=== PATIENT | male | born 1960 | race Caucasian/White ===

== ENCOUNTER 2017-08-15 23:39 | Emergency (ER) | payer OTHER ==
[~2017-08-15] VITALS: Ht 185.4 cm; Wt 89.2 kg
[2017-08-16] MEDS ORDERED: SODIUM CHLORIDE 0.9% 1,000ML IV ONE
[2017-08-16] MEDS ORDERED: KETOROLAC 30 MG/1 ML IVPush ONE
[2017-08-16] MEDS ORDERED: SODIUM CHLORIDE FLUSH 10ML SYR IVF ONE
[2017-08-16] MEDS ORDERED: KETOROLAC 30 MG/1 ML ONE (00:06)
[2017-08-16 00:24] LABS: BASOPHILS # (AUTO) 0.03 x10^3/uL (0-0.1); BASOPHILS % (AUTO) 0 % (0-1); EOSINOPHILS # (AUTO) 0.07 x10^3/uL (0-0.4); EOSINOPHILS % (AUTO) 1 % (1-7); LYMPHOCYTES # (AUTO) 1.98 x10^3/uL (1-3.4); LYMPHOCYTES % (AUTO) 22 % (22-44); MD NO; MEAN CORPUSCULAR HEMOGLOBIN 31.7 pg (27.5-34.5); MEAN CORPUSCULAR HGB CONC 33.3 g/dL (33.2-36.2); MEAN CORPUSCULAR VOLUME 95.1 fL (81-97); MEAN PLATELET VOLUME 7.5 fL (7.4-10.4); MONOCYTES % (AUTO) 10 % (2-9); NEUTROPHILS # (AUTO) 6.01 x10^3/uL (1.8-6.8); NEUTROPHILS % (AUTO) 67 % (42-75); PLATELET COUNT 254 x10^3/uL (130-400); RED BLOOD COUNT 4.62 x10^6/uL (4.38-5.82); RED CELL DISTRIBUTION WIDTH 12.7 % (9.4-14.8)
[2017-08-16 00:33] LABS: ALANINE AMINOTRANSFERASE 23 U/L (12-78); ALBUMIN 3.6 g/dL (3.4-5.0); ANION GAP 9 mmol/L (5-15); CALCIUM 8.5 mg/dL (8.5-10.1); CHLORIDE 112 mmol/L (98-107); CREATININE 1.08 mg/dL (0.7-1.3)
[2017-08-16 00:35] LABS: ALKALINE PHOSPHATASE 92 U/L (45-117); BILIRUBIN,TOTAL 0.8 mg/dL (0.2-1.0); TOTAL PROTEIN 6.9 g/dL (6.4-8.2)
[2017-08-16 01:19] LABS: MICROSCOPIC AUTO
[2017-08-16 01:24] LABS: CULTURE INDICATED? YES
[2017-08-16 02:45] VITALS: BP 124/86
== END 2017-08-16 02:50 | disposition home or self-care (01) ==
LOC: ED 08-16 01:00
DX: N13.2 Hydronephrosis with renal and ureteral calculous obstruction (principal); K21.9 Gastro-esophageal reflux disease without esophagitis; E78.5 Hyperlipidemia, unspecified; G80.9 Cerebral palsy, unspecified
CPT/HCPCS: 36415; 74176; 80053; 81001; 85025; 87086; 96361; 96374; 99285; J1885; J7030

== ENCOUNTER 2018-06-06 23:09 | Inpatient (IN) | payer OTHER ==
[~2018-06-06] VITALS: Ht 185.4 cm; Wt 85.3 kg
--- NOTE | 2018-06-06 23:30 | NUR ---
PT AMBULATED TO ROOM WITH A STEADY GAIT. PT RECENTLY DX WITH PNEUMONIA. 3 DAYS OF ANTIBIOTICS AND NOT GETTING BETTER PT O2 SAT IN OFFICE 8. AFTER BREATHING TX UP TO 91. HAS BEEN USING INHALER FOR PAST FEW NIGHTS. PLACED ON O2 AT 2 LPM, SATING 92, ABLE TO SPEAK IN FULL SENTENCES
[2018-06-07] MEDS ORDERED: ALBUTEROL/IPRATROPIUM 2.5MG/0.5MG, 3 ML NPPB ONE
[2018-06-07 00:17] LABS: ALANINE AMINOTRANSFERASE 30 U/L (12-78); ALBUMIN 2.8 g/dL (3.4-5.0); ANION GAP 9 mmol/L (5-15); CALCIUM 8.9 mg/dL (8.5-10.1); CHLORIDE 107 mmol/L (98-107); CREATININE 0.98 mg/dL (0.7-1.3)
[2018-06-07 00:18] LABS: ALKALINE PHOSPHATASE 74 U/L (45-117); BASOPHILS # (AUTO) 0.07 x10^3/uL (0-0.1); BASOPHILS % (AUTO) 1 % (0-1); BILIRUBIN,TOTAL 0.6 mg/dL (0.2-1.0); EOSINOPHILS % (AUTO) 0 % (1-7); LYMPHOCYTES # (AUTO) 1.05 x10^3/uL (1-3.4); LYMPHOCYTES % (AUTO) 9 % (22-44); MD NO; MEAN CORPUSCULAR HEMOGLOBIN 32.5 pg (27.5-34.5); MEAN CORPUSCULAR HGB CONC 34.2 g/dL (33.2-36.2); MEAN CORPUSCULAR VOLUME 94.8 fL (81-97); MEAN PLATELET VOLUME 7.8 fL (7.4-10.4); MONOCYTES # (AUTO) 1.03 x10^3/uL (0.2-0.8); MONOCYTES % (AUTO) 9 % (2-9); NEUTROPHILS # (AUTO) 9.64 x10^3/uL (1.8-6.8); NEUTROPHILS % (AUTO) 82 % (42-75); PLATELET COUNT 372 x10^3/uL (130-400); RED BLOOD COUNT 4.06 x10^6/uL (4.38-5.82); RED CELL DISTRIBUTION WIDTH 13.2 % (9.4-14.8); TOTAL PROTEIN 7.3 g/dL (6.4-8.2)
[2018-06-07] MEDS ORDERED: ALBUTEROL/IPRATROPIUM 2.5MG/0.5MG, 3 ML ONE (00:21)
--- NOTE | 2018-06-07 00:46 | NUR ---
TASK RN: PT IN CT
[2018-06-07] MEDS ORDERED: OMNIPAQUE 350 MG/ML, 100ML BOTTLE ONE (00:55)
--- NOTE | 2018-06-07 00:58 | NUR ---
TASK RN: PT RETURNED FROM CT, NAD NOTED. RESPIRATIONS EVEN/UNLABORED; SPEAKING IN FULL SENTENCES WO DIFFICULTY; SPO2 >90% ON 2L BY NC. IVF HUNG FOR TX OF LA. ERP AT BEDSIDE TO DISCUSS POC (RESULTS/RECHECK), PT DEMONSTRATES UNDERSTANDING BP/SPO2/ECG MONITORING IN PLACE. SINUS TACH ON MONITOR. SO AT BEDSIDE.
[2018-06-07] MEDS ORDERED: SODIUM CHLORIDE 0.9% 1,000ML IVBOLUS ONE (01:00)
[2018-06-07] MEDS ORDERED: LEVOFLOXACIN/PMX 750MG/150ML 150 ML ONE (01:50)
[2018-06-07] MEDS ORDERED: LEVOFLOXACIN/PMX 750MG/150ML 150 ML IV ONE (02:00)
[2018-06-07] MEDS ORDERED: VANCOMYCIN PER PHARMACY MC PRN ×2 (02:00→02:30)
--- NOTE | 2018-06-07 02:00 | NUR ---
HOSPITALIST AT BEDSIDE, PT IN NO DISTRESS
[2018-06-07] MEDS ORDERED: ONDANSETRON 2MG/ML, 2ML IVPB PRN (02:30)
[2018-06-07] MEDS ORDERED: PHARMACY MAY ADJ FOR RENAL FX MC PRN (02:30)
[2018-06-07] MEDS ORDERED: LEVOFLOXACIN/PMX 750MG/150ML 150 ML IV SCH (02:30)
[2018-06-07] MEDS ORDERED: ACETAMINOPHEN 325 MG TABLET PO PRN (02:30)
[2018-06-07] MEDS ORDERED: ALBUTEROL/IPRATROPIUM 2.5MG/0.5MG, 3 ML IPPB PRN (02:30)
[2018-06-07 02:31] LABS: RAPID INFLUENZA A Negative (Negative); RAPID INFLUENZA B Negative (Negative)
[2018-06-07] MEDS ORDERED: ENOXAPARIN 40 MG/0.4 ML ONE (02:53)
[2018-06-07] MEDS ORDERED: methylPREDNISolone SOD SUCC 40 MG/ML ONE (02:54)
--- NOTE | 2018-06-07 02:55 | NUR ---
PT RESTING QUIETLY, DENIES SOB, MEDICATED PER eMAR, LIGHTS TURNED DOWN
[2018-06-07] MEDS: methylPREDNISolone SOD SUCC 40 MG/ML IV SCH ×2 (03:11→15:06)
[2018-06-07] MEDS: ENOXAPARIN 40 MG/0.4 ML SQ SCH (03:11)
--- NOTE | 2018-06-07 03:48 | NUR ---
PT ASKED IF HE WOULD LIKE TO BE IN HOSPITAL BED. STATES "NO, I JUST WANT TO SLEEP." THIS RN SAID HOSPITAL BEDS ARE TYPICALLY MORE COMFORTABLE. PT STILL REFUSING.
--- NOTE | 2018-06-07 04:07 | NUR ---
PT RESTING QUIETLY, NO COMPLAINTS AT THIS TIME. STATES THE SERVICE HERE HAS BEEN GREAT
[2018-06-07] MEDS ORDERED: PHARMACOKINETIC MONITORING MC PRN (06:00)
[2018-06-07] MEDS: VANCOMYCIN 1,600 MG in SODIUM CHLORIDE 0.9% 250 ML IV SCH ×2 (06:49→19:19)
--- NOTE | 2018-06-07 07:27 | NUR ---
BEDSIDE REPORT FROM ADAN RN, PT RESTING IN BED, ON 4LNC, NO NEEDS AT THIS TIME, BREAKFAST TRAY ORDERED, CALL LIGHT WITH PT.
--- NOTE | 2018-06-07 08:45 | NUR ---
PT MOVED TO HOSPITAL BED AND BREAKFAST PROVIDED. PT SITTING IN CHAIR TO EAT, NO NEEDS AT THIS TIME. WCTM.
[2018-06-07] MEDS ORDERED: BENZONATATE 100 MG CAPSULE ONE (08:54)
[2018-06-07] MEDS: BENZONATATE 100 MG CAPSULE PO SCH ×3 (08:58→20:55)
[2018-06-07] MEDS ORDERED: ALBUTEROL/IPRATROPIUM 2.5MG/0.5MG, 3 ML NPPB PRN (10:30)
--- NOTE | 2018-06-07 10:51 | NUR ---
PT IN BED, NAD, NO NEEDS AT THIS TIME. WCMT.
--- NOTE | 2018-06-07 11:43 | NUR ---
REPORT GIVEN TO FATOU REEVES, PT TRANSPORTED TO ROOM WITH TECH [facility]IA [facility]. VSS. TORRE.
[2018-06-07] MEDS ORDERED: CEFTRIAXONE PMX 2GM/50ML 50 ML IV SCH (13:30)
[2018-06-07 14:00] VITALS: BP 126/86
[2018-06-07 18:35] VITALS: BP 123/80
[2018-06-07] MEDS: DOXYCYCLINE 100MG TABLET PO SCH (20:55)
[2018-06-08] MEDS ORDERED: GUAIFENESIN/DM 200-20MG, 10ML UDC PO PRN (00:30)
[2018-06-08 00:39] VITALS: BP 113/66
[2018-06-08] MEDS: GUAIFENESIN/DM 200-20MG, 10ML UDC PO PRN ×3 (00:54→21:14)
[2018-06-08] MEDS: methylPREDNISolone SOD SUCC 40 MG/ML IV SCH ×2 (02:35→18:03)
[2018-06-08] MEDS: ENOXAPARIN 40 MG/0.4 ML SQ SCH (02:35)
[2018-06-08 04:47] LABS: ANION GAP 5 mmol/L (5-15); CALCIUM 8.6 mg/dL (8.5-10.1); CHLORIDE 109 mmol/L (98-107); CREATININE 0.83 mg/dL (0.7-1.3)
[2018-06-08 04:55] LABS: BASOPHILS # (AUTO) 0.02 x10^3/uL (0-0.1); BASOPHILS % (AUTO) 0 % (0-1); EOSINOPHILS % (AUTO) 0 % (1-7); LYMPHOCYTES # (AUTO) 1.45 x10^3/uL (1-3.4); LYMPHOCYTES % (AUTO) 9 % (22-44); MD NO; MEAN CORPUSCULAR HEMOGLOBIN 32.1 pg (27.5-34.5); MEAN CORPUSCULAR HGB CONC 33.5 g/dL (33.2-36.2); MEAN PLATELET VOLUME 7.6 fL (7.4-10.4); MONOCYTES # (AUTO) 1.07 x10^3/uL (0.2-0.8); MONOCYTES % (AUTO) 7 % (2-9); NEUTROPHILS # (AUTO) 13.88 x10^3/uL (1.8-6.8); NEUTROPHILS % (AUTO) 85 % (42-75); PLATELET COUNT 349 x10^3/uL (130-400); RED BLOOD COUNT 3.95 x10^6/uL (4.38-5.82); RED CELL DISTRIBUTION WIDTH 13.4 % (9.4-14.8)
[2018-06-08 07:20] VITALS: BP 114/68
[2018-06-08] MEDS: BENZONATATE 100 MG CAPSULE PO SCH ×3 (08:25→21:14)
[2018-06-08] MEDS: DOXYCYCLINE 100MG TABLET PO SCH ×2 (08:25→21:14)
[2018-06-08] MEDS: VANCOMYCIN 1,600 MG in SODIUM CHLORIDE 0.9% 250 ML IV SCH (08:25)
[2018-06-08 13:49] VITALS: BP 120/77
[2018-06-08 18:46] VITALS: BP 110/70
[2018-06-08] MEDS: LINEZOLID 600 MG TABLET PO SCH (21:14)
[2018-06-09 04:37] VITALS: BP 118/72
[2018-06-09] MEDS: methylPREDNISolone SOD SUCC 40 MG/ML IV SCH ×2 (06:56→17:31)
[2018-06-09] MEDS: ENOXAPARIN 40 MG/0.4 ML SQ SCH (06:57)
[2018-06-09 07:00] VITALS: BP 112/75
[2018-06-09] MEDS: BENZONATATE 100 MG CAPSULE PO SCH ×3 (08:28→21:10)
[2018-06-09] MEDS: LINEZOLID 600 MG TABLET PO SCH ×2 (08:28→21:10)
[2018-06-09] MEDS: DOXYCYCLINE 100MG TABLET PO SCH ×2 (08:28→21:10)
[2018-06-09] MEDS: LEVOFLOXACIN 750 MG TABLET PO SCH (08:28)
[2018-06-09 08:42] LABS: BASOPHILS # (AUTO) 0.03 x10^3/uL (0-0.1); BASOPHILS % (AUTO) 0 % (0-1); EOSINOPHILS % (AUTO) 0 % (1-7); LYMPHOCYTES # (AUTO) 2.01 x10^3/uL (1-3.4); LYMPHOCYTES % (AUTO) 14 % (22-44); MD NO; MEAN CORPUSCULAR HEMOGLOBIN 31.9 pg (27.5-34.5); MEAN CORPUSCULAR HGB CONC 33.1 g/dL (33.2-36.2); MEAN CORPUSCULAR VOLUME 96.4 fL (81-97); MEAN PLATELET VOLUME 7.6 fL (7.4-10.4); MONOCYTES # (AUTO) 0.79 x10^3/uL (0.2-0.8); MONOCYTES % (AUTO) 5 % (2-9); NEUTROPHILS # (AUTO) 11.82 x10^3/uL (1.8-6.8); NEUTROPHILS % (AUTO) 81 % (42-75); PLATELET COUNT 353 x10^3/uL (130-400); RED BLOOD COUNT 4.17 x10^6/uL (4.38-5.82); RED CELL DISTRIBUTION WIDTH 13.6 % (9.4-14.8)
[2018-06-09 08:54] LABS: ANION GAP 5 mmol/L (5-15); CALCIUM 8.3 mg/dL (8.5-10.1); CHLORIDE 104 mmol/L (98-107)
[2018-06-09 08:55] LABS: CREATININE 0.79 mg/dL (0.7-1.3)
[2018-06-09 19:58] VITALS: BP 105/67
[2018-06-10] MEDS: ENOXAPARIN 40 MG/0.4 ML SQ SCH (06:00)
[2018-06-10 06:07] VITALS: BP 107/65
[2018-06-10] MEDS: methylPREDNISolone SOD SUCC 40 MG/ML IV SCH (06:33)
[2018-06-10] MEDS: LINEZOLID 600 MG TABLET PO SCH (08:26)
[2018-06-10] MEDS: LEVOFLOXACIN 750 MG TABLET PO SCH (08:26)
[2018-06-10] MEDS: DOXYCYCLINE 100MG TABLET PO SCH (08:26)
[2018-06-10] MEDS: BENZONATATE 100 MG CAPSULE PO SCH (08:26)
[2018-06-10] MEDS ORDERED: PRED5TAB PO ×2 (13:28)
[2018-06-10] MEDS ORDERED: LEVO750T26 PO (13:28)
[2018-06-10] MEDS ORDERED: BENZ-17 PO (13:28)
[2018-06-10] MEDS ORDERED: METH4TAB2 PO (13:43)
== END 2018-06-10 15:05 | disposition home or self-care (01) | DRG 177 ==
LOC: ED 06-07 01:52 → EDIP 06-07 02:02 → 3NW 06-07 12:15
PROVIDERS: ADMIT Internal Medicine; ATTEND Internal Medicine
DX: J15.6 Pneumonia due to other Gram-negative bacteria (principal); J96.01 Acute respiratory failure with hypoxia; E87.2 Acidosis; E78.5 Hyperlipidemia, unspecified; F51.04 Psychophysiologic insomnia; G47.33 Obstructive sleep apnea (adult) (pediatric); G80.9 Cerebral palsy, unspecified; J45.909 Unspecified asthma, uncomplicated; K21.9 Gastro-esophageal reflux disease without esophagitis; K31.89 Other diseases of stomach and duodenum; K44.9 Diaphragmatic hernia without obstruction or gangrene; Z85.828 Personal history of other malignant neoplasm of skin; Z91.19 Patient's noncompliance with other medical treatment and regimen; J18.9 Pneumonia, unspecified organism
CPT/HCPCS: 36415; 87400; 99285; J7620; 71275; 80048; 80053; 83605; 83735; 85025; 86738; 87040; 87070; 87081; 87205; 93005; 93306; 96365; G0378; J0696; J1650; J1956; J3370; Q9967; J2920; J7030; J7050

== ENCOUNTER 2018-08-19 07:52 | Outpatient (CLI) | payer OTHER ==
[~2018-08-19 07:52] MED LIST: BENZ-17 PO; LEVO750T26 PO; METH4TAB2 PO; PRED5TAB PO
[2018-08-19] MEDS ORDERED: UBID100C10 PO (08:32)
[2018-08-19] MEDS ORDERED: TRAZ50TA66 PO (08:32)
[2018-08-19] MEDS ORDERED: ATOR20TA37 PO (08:32)
[2018-08-19] MEDS ORDERED: DORZ10DR27 EACHEYE (08:49)
[2018-08-19] MEDS ORDERED: ALBU8.5H8 INH (08:49)
== END 2018-08-19 23:59 | disposition home or self-care (01) ==
LOC: STAR 07:52
PROVIDERS: ATTEND Surgery
DX: Z02.9 Encounter for administrative examinations, unspecified (principal)

== ENCOUNTER 2018-08-29 11:50 | Observation (INO) | payer OTHER ==
[~2018-08-29] VITALS: Ht 185.4 cm; Wt 90.6 kg
[~2018-08-29 11:50] MED LIST changes: +ALBU8.5H8 INH; +ATOR20TA37 PO; +DORZ10DR27 EACHEYE; +TRAZ50TA66 PO; +UBID100C10 PO
[2018-08-29 12:08] VITALS: BP 133/87
[2018-08-29] MEDS ORDERED: MIDAZOLAM 1 MG/ML, 2ML ONE (13:24)
[2018-08-29] MEDS ORDERED: FENTANYL PF 250 MCG/5ML ONE (13:24)
[2018-08-29] MEDS ORDERED: BUPIVACAINE/PF-EPI 0.5% 1:200K ONE (14:15)
[2018-08-29] MEDS ORDERED: GABAPENTIN 300 MG CAPSULE PO ONE (14:30)
[2018-08-29] MEDS ORDERED: FAMOTIDINE 20 MG TABLET PO ONE (14:30)
[2018-08-29] MEDS ORDERED: ACETAMINOPHEN 500 MG TABLET PO ONE (14:30)
[2018-08-29] MEDS ORDERED: DEXAMETHASONE 4 MG/ML, 1ML ONE (14:40)
[2018-08-29] MEDS ORDERED: CEFAZOLIN 1,000 MG ONE ×2 (14:41)
[2018-08-29] MEDS ORDERED: ONDANSETRON 2MG/ML, 2ML IV PRN (15:30)
[2018-08-29] MEDS ORDERED: HYDROmorphone 2 MG/ML, 1ML IVPush PRN (15:30)
[2018-08-29] MEDS ORDERED: LABETALOL 5 MG/ML SYRINGE IV PRN (15:30)
[2018-08-29] MEDS ORDERED: FENTANYL PF 100 MCG/2ML IV PRN (15:30)
[2018-08-29] MEDS ORDERED: PROMETHAZINE 25 MG/ML, 1ML IV PRN (15:30)
[2018-08-29] MEDS ORDERED: MEPERIDINE/PF 25MG/0.5ML IVPush PRN (15:30)
[2018-08-29] MEDS ORDERED: hydrALAzine 20 MG/ML, 1ML IV PRN (15:30)
[2018-08-29] MEDS ORDERED: ROCURONIUM 10MG/ML,5ML ONE (16:13)
[2018-08-29] MEDS ORDERED: ONDANSETRON 2MG/ML, 2ML ONE (16:14)
[2018-08-29] MEDS ORDERED: PROPOFOL 10 MG/ML, 20ML ONE (16:14)
[2018-08-29] MEDS ORDERED: GLYCOPYRROLATE 0.4 MG/2 ML, 2ML ONE (16:40)
[2018-08-29] MEDS ORDERED: NEOSTIGMINE 1 MG/ML, 10ML ONE (16:40)
[2018-08-29] MEDS ORDERED: NEOSPORIN OINT, 15GM ONE (16:41)
[2018-08-29] MEDS ORDERED: OXYcodone 5 MG/5 ML ORAL.SOL UDC ONE ×2 (17:11→17:31)
[2018-08-29] MEDS: OXYcodone 5 MG/5 ML ORAL.SOL UDC PO PRN ×2 (17:13→17:32)
[2018-08-29] MEDS ORDERED: OXYcodone 5 MG/5 ML ORAL.SOL UDC PO PRN (18:30)
[2018-08-29] MEDS ORDERED: ONDANSETRON 2MG/ML, 2ML IVPush PRN (18:30)
[2018-08-29] MEDS ORDERED: ALBUTEROL SULFATE 2.5MG/0.5ML NPPB PRN (18:30)
[2018-08-29] MEDS ORDERED: MORPHINE SULFATE 4 MG/ML, 1ML IVPush PRN (18:30)
[2018-08-29 20:00] VITALS: BP 126/84
[2018-08-29] MEDS: ACETAMINOPHEN 650 MG/20.3 ML UDC PO SCH (20:18)
[2018-08-29] MEDS ORDERED: TRAZODONE 50MG TABLET PO SCH (21:00)
[2018-08-29] MEDS: DORZOLAMIDE OPHTH 2%, 10ML EACHEYE SCH (21:39)
[2018-08-30 00:56] VITALS: BP 123/71
[2018-08-30] MEDS: TORADOL MC SCH ×2 (01:00→07:40)
[2018-08-30] MEDS: ACETAMINOPHEN 650 MG/20.3 ML UDC PO SCH ×2 (02:09→07:40)
[2018-08-30 06:44] VITALS: BP 105/59
[2018-08-30] MEDS: DORZOLAMIDE OPHTH 2%, 10ML EACHEYE SCH (07:40)
[2018-08-30] MEDS ORDERED: IBUPROFEN 100 MG/5 ML UDC PO SCH (08:00)
[2018-08-30] MEDS ORDERED: ENOXAPARIN 40 MG/0.4 ML SQ SCH (08:00)
[2018-08-30] MEDS ORDERED: ACET-1600 PO (09:55)
[2018-08-30] MEDS ORDERED: IBUP100O32 PO (09:57)
[2018-08-30] MEDS ORDERED: OXYC5SOL8 PO (10:00)
[2018-08-30 11:21] VITALS: BP 115/67
== END 2018-08-30 11:59 | disposition home or self-care (01) ==
LOC: OUT 11:50 → 4NOR 17:53 → OUT 23:48 → 4NOR 23:49
PROVIDERS: ADMIT Surgery; ATTEND Surgery
DX: K44.9 Diaphragmatic hernia without obstruction or gangrene (principal); G80.9 Cerebral palsy, unspecified; E78.5 Hyperlipidemia, unspecified; E78.00 Pure hypercholesterolemia, unspecified; G47.33 Obstructive sleep apnea (adult) (pediatric); Z79.899 Other long term (current) drug therapy
CPT/HCPCS: 43282; 96372; G0378; J0690; J1100; J1650; J2250; J2405; J2704; J2710; J3010; Q4116